=== PATIENT | female | born 1985 | race Caucasian/White ===

== ENCOUNTER 2022-01-21 09:52 | Emergency (ER) | payer OTHER ==
[~2022-01-21] VITALS: Ht 165.1 cm; Wt 77.1 kg
[2022-01-21] MEDS ORDERED: VENLAFAXINE HC150 M1 (10:21)
[2022-01-21] MEDS ORDERED: ADDERALL 20 MG20 MG (10:22)
== END 2022-01-21 13:12 | disposition home or self-care (01) ==
LOC: ER 09:52
DX: M62.830 Muscle spasm of back (principal)